=== PATIENT | male | born 1940 | race Caucasian/White ===

== ENCOUNTER 2025-07-30 11:25 | Emergency (ER) | payer OTHER ==
[2025-07-30 13:46] LABS: Absolute Lymphocytes (CBC) 0.6 K/uL (0.7-4.9); Hematocrit 35.5 % (39.6-49.0); Hemoglobin 12.0 g/dL (13.6-17.9); MCH 30.6 pg (27.0-35.0); MCHC 33.9 g/dL (32.0-36.0); MCV 90.3 fL (80-100); MPV 6.4 fL (7.6-11.3); Nucleated RBC Absolute Count 0.0 (0-0); Nucleated Red Blood Cells % 0.0 % (0-0); RBC Red Blood Cell Count 3.93 M/uL (4.33-5.43); White Blood Count 5.60 thou/uL (4.3-10.9)
[2025-07-30 13:55] LABS: PT Prothrombin Time 12.0 SECONDS (10-13.0); Protime INR 1.06
[2025-07-30 14:07] LABS: ALT/SGPT 24 U/L (16-61); Albumin 3.4 g/dL (3.4-5.0); Albumin/Globulin Ratio 0.9 (1.1-1.8); Alkaline Phosphatase 61 U/L (45-117); Anion Gap 11.2 mEq/L (5.0-15.0); BUN Blood Urea Nitrogen 17 mg/dL (7-18); Globulin 3.7 g/dL (2.3-3.5); Glucose Level 101 mg/dL (74-106); Magnesium 1.9 mg/dL (1.6-2.4); NT PRO-BNP 122 pg/mL (<450); Potassium 4.2 mEq/L (3.5-5.1); Troponin High Sensitivity 4.2 pg/mL (<58.9)
[2025-07-30 14:11] LABS: AST/SGOT < 10 U/L (15-37); Bilirubin Indirect, Calculated 0.2 mg/dL (0.2-0.8)
--- NOTE | 2025-07-30 15:28 | EDPHYS ---
Physician Documentation [facility] Name: Marcus Iraheta Jr Age: 85 yrs Sex: Male : 1940 Arrival Date: 07/30/2025 Time: 11:25 Bed 17 Private MD: ED Physician Rosibel Miramontes HPI: 07/30 15:25 This 85 yrs old Male presents to ER via Wheelchair with complaints of Diarrhea, Rectal sp3 Bleeding. 15:25 85-year-old male history of hypertension, hyperlipidemia, prior kidney cancer, now sp3 presents to the ED with chief complaint of diarrhea mixed with bright red blood for the last several weeks. Frequency has increased over the last 2 days. Was sent for outpatient colonoscopy several weeks from now but now presents to the ED for evaluation secondary to increased bowel movements. Denies any headache, fever, chest pain, shortness of breath, abdominal pain, syncope, near syncope, bleeding elsewhere, or any other signs or symptoms on ROS at this time.. Historical: - Allergies: 13:09 No Known Allergies; me1 - PMHx: 13:09 Hypertensive disorder; Hypercholesterolemia; kidney cancer; me1 - PSHx: 13:09 right nephrectomy; me1 - Immunization history:: Adult Immunizations up to date. - Infectious Disease History:: Denies. - Social history:: Smoking status: Patient/guardian denies using tobacco, but has a distant history of tobacco abuse. ROS: 15:25 Constitutional: Negative for fever, chills, and weight loss, Eyes: Negative for injury, sp3 pain, redness, and discharge, Neck: Negative for injury, pain, and swelling, Cardiovascular: Negative for chest pain, palpitations, and edema, Respiratory: Negative for shortness of breath, cough, wheezing, and pleuritic chest pain, Back: Negative for injury and pain, MS/Extremity: Negative for injury and deformity, Skin: Negative for injury, rash, and discoloration, Neuro: Negative for headache, weakness, numbness, tingling, and seizure, Psych: Negative for depression, anxiety, suicide ideation, homicidal ideation, and hallucinations, Allergy/Immunology: Negative for hives, rash, and allergies, Endocrine: Negative for neck swelling, polydipsia, polyuria, polyphagia, and marked weight changes, 15:25 All other systems are negative, Exam: 15:26 Constitutional: This is a well developed, well nourished patient who is awake, alert, sp3 and in no acute distress. Head/Face: Normocephalic, atraumatic. Eyes: Pupils equal round and reactive to light, extra-ocular motions intact. Lids and lashes normal. Conjunctiva and sclera are non-icteric and not injected. Cornea within normal limits. Periorbital areas with no swelling, redness, or edema. Neck: Trachea midline, no thyromegaly or masses palpated, and no cervical lymphadenopathy. Supple, full range of motion without nuchal rigidity, or vertebral point tenderness. No Meningismus. Chest/axilla: Normal chest wall appearance and motion. Nontender with no deformity. No lesions are appreciated. Cardiovascular: Regular rate and rhythm with a normal S1 and S2. No gallops, murmurs, or rubs. Normal PMI, no JVD. No pulse deficits. Respiratory: Lungs have equal breath sounds bilaterally, clear to auscultation and percussion. No rales, rhonchi or wheezes noted. No increased work of breathing, no retractions or nasal flaring. Abdomen/GI: Soft, non-tender, with normal bowel sounds. No distension or tympany. No guarding or rebound. No evidence of tenderness throughout. Back: No spinal tenderness. No costovertebral tenderness. Full range of motion. Skin: Warm, dry with normal turgor. Normal color with no rashes, no lesions, and no evidence of cellulitis. MS/ Extremity: Pulses equal, no cyanosis. Neurovascular intact. Full, normal range of motion. Neuro: Awake and alert, GCS 15, oriented to person, place, time, and situation. Cranial nerves II-XII grossly intact. Motor strength 5/5 in all extremities. Sensory grossly intact. Cerebellar exam normal. Normal gait. Psych: Awake, alert, with orientation to person, place and time. Behavior, mood, and affect are within normal limits. 15:26 Abdomen/GI: 15:36 ECG was reviewed by the Attending Physician. EKG demonstrates normal sinus rhythm at 73 sp3 bpm with normal intervals, normal QR, leftward axis and nonspecific diffuse ST/T changes without evidence of acute ischemia. Vital Signs: 13:07 BP 113 / 79; Pulse 77; Resp 18; Temp 98.6; Pulse Ox 96% ; Weight 111.13 kg; Height 6 me1 ft. 3 in. ; Pain 0/10; 14:45 BP 166 / 90; Pulse 75; Resp 20; Pulse Ox 100% on R/A; kj2 15:35 BP 152 / 90; Pulse 72; Resp 18; Temp 98; Pulse Ox 100% ; kj2 13:07 Body Mass Index 30.62 (111.13 kg, 190.5 cm) me1 13:07 Pain Scale: Adult me1 MDM: 13:14 Medical Screening Exam initiated sp3 15:26 Data reviewed: vital signs, nurses notes, old medical records, lab test result(s). ED sp3 course: 85-year-old male with diarrhea and mixed bloody stools. Consider hemorrhoids versus other lower GI bleeding source. Vital signs are stable. Hemoglobin is 12.0. I have discussed the case with Dr. Corrales their GI doctor who states his office will call them to move up his colonoscopy to next week. Admission not indicated at this time. Patient understands to return if bleeding gets worse. We will safely discharge patient home at this time.. 07/30 13:13 Order name: Basic Metabolic Panel; Complete Time: 15:04 sp3 07/30 13:13 Order name: CBC with Diff; Complete Time: 13:56 sp3 07/30 13:13 Order name: LFT's; Complete Time: 15:04 sp3 07/30 13:13 Order name: Magnesium; Complete Time: 15:04 sp3 07/30 13:13 Order name: NT PRO-BNP; Complete Time: 15:04 sp3 07/30 13:13 Order name: PT-INR; Complete Time: 13:56 sp3 07/30 13:13 Order name: Troponin HS; Complete Time: 15:04 sp3 07/30 13:13 Order name: Type And Screen; Complete Time: 15:44 sp3 07/30 13:13 Order name: Cardiac monitoring; Complete Time: 14:48 sp3 07/30 13:13 Order name: EKG - Nurse/Tech; Complete Time: 13:48 sp3 07/30 13:13 Order name: IV Saline Lock; Complete Time: 13:48 sp3 07/30 13:13 Order name: Labs collected and sent; Complete Time: 13:48 sp3 07/30 13:13 Order name: O2 Sat Monitoring; Complete Time: 14:48 sp3 Administered Medications: No medications were administered Disposition Summary: 07/30/25 15:27 Discharge Ordered Notes: Location: Home sp3 Condition: Stable sp3 Diagnosis - Lower GI bleed sp3 Followup: sp3 - With: Vick Mcnally MD - When: Upon discharge from the Emergency Department - Reason: Recheck today's complaints, Continuance of care Discharge Instructions: - Discharge Summary Sheet sp3 - Lower Gastrointestinal Bleeding sp3 Forms: - Medication Reconciliation Form sp3 - Antibiotic Education sp3 - Prescription Opioid Use sp3 - Patient Portal Instructions sp3 - Leadership Thank You Letter sp3 Signatures: Dispatcher [employer] EDMS Rosibel Miramontes MD MD sp3 Bell Ott RN RN me1 Corrections: (The following items were deleted from the chart) 13:14 13:14 BASIC METABOLIC PANEL+C.LAB.BRZ ordered. EDMS EDMS 13:14 13:14 CBC+H.LAB.BRZ ordered. EDMS EDMS 13:14 13:14 HEPATIC FUNCTION+C.LAB.BRZ ordered. EDMS EDMS 13:14 13:14 MAGNESIUM+C.LAB.BRZ ordered. EDMS EDMS 13:14 13:14 PROBNP+C.LAB.BRZ ordered. EDMS EDMS 13:14 13:14 PROTIME (+INR)+COAG.LAB.BRZ ordered. EDMS EDMS 13:14 13:14 Troponin High Sensitivity+C.LAB.BRZ ordered. EDMS EDMS 13:14 13:14 TYPE AND SCREEN+BB.LAB.BRZ ordered. EDMS EDMS
--- NOTE | 2025-07-30 15:28 | ER ---
Nurse's Notes [facility] Name: Marcus Iraheta Jr Age: 85 yrs Sex: Male : 1940 Arrival Date: 07/30/2025 Time: 11:25 Bed 17 Private MD: Diagnosis: Lower GI bleed Presentation: 07/30 13:07 Chief complaint: Patient states: recent hx of intermittent rectal bleeding that has me1 worsened over the past 2 days. Patient reports heavy bright red rectal bleeding. Denies pain, Denies fever, No n/v. Coronavirus screen: At this time, the client does not indicate any symptoms associated with coronavirus-19. Ebola Screen: No symptoms or risks identified at this time. Initial Sepsis Screen: Does the patient meet any 2 criteria? No. Patient's initial sepsis screen is negative. Does the patient have a suspected source of infection? No. Patient's initial sepsis screen is negative. Risk Assessment: Do you want to hurt yourself or someone else? Patient reports no desire to harm self or others. Onset of symptoms is unknown. 13:07 Method Of Arrival: Wheelchair me1 13:07 Acuity: VANCE 3 me1 Triage Assessment: 14:45 Pain: Denies pain. kj2 Historical: - Allergies: 13:09 No Known Allergies; me1 - PMHx: 13:09 Hypertensive disorder; Hypercholesterolemia; kidney cancer; me1 - PSHx: 13:09 right nephrectomy; me1 - Immunization history:: Adult Immunizations up to date. - Infectious Disease History:: Denies. - Social history:: Smoking status: Patient/guardian denies using tobacco, but has a distant history of tobacco abuse. Screenin:01 [facility] ED Fall Risk Assessment (Adult) History of falling in the last 3 months, kj2 including since admission No falls in past 3 months (0 pts) Confusion or Disorientation No (0 pts) Intoxicated or Sedated No (0 pts) Impaired Gait No (0 pts) Mobility Assist Device Used No (0 pt) Altered Elimination No (0 pt) Score/Fall Risk Level 0 - 2 = Low Risk Maintained a safe environment, Hourly rounding (assess needs \T\ fall precautionary measures) done. Abuse screen: Denies threats or abuse. Denies injuries from another. Nutritional screening: No deficits noted. Tuberculosis screening: No symptoms or risk factors identified. Assessment: 14:45 General: Appears in no apparent distress. Behavior is cooperative. Neuro: Level of kj2 Consciousness is awake, alert, obeys commands, Oriented to person, place, time, situation. Cardiovascular: Patient's skin is warm and dry. Respiratory: Airway is patent Respiratory effort is even, unlabored. GI: Reports diarrhea. : No signs and/or symptoms were reported regarding the genitourinary system. 15:35 Reassessment: Patient appears in no apparent distress at this time. kj2 Vital Signs: 13:07 BP 113 / 79; Pulse 77; Resp 18; Temp 98.6; Pulse Ox 96% ; Weight 111.13 kg; Height 6 me1 ft. 3 in. ; Pain 0/10; 14:45 BP 166 / 90; Pulse 75; Resp 20; Pulse Ox 100% on R/A; kj2 15:35 BP 152 / 90; Pulse 72; Resp 18; Temp 98; Pulse Ox 100% ; kj2 13:07 Body Mass Index 30.62 (111.13 kg, 190.5 cm) me1 13:07 Pain Scale: Adult nd1 ED Course: 11:32 Patient arrived in ED. al6 11:52 Rosibel Miramontes MD is Attending Physician. sp3 13:09 Triage completed. me1 13:09 Arm band placed on Patient placed in waiting room. EKG completed in triage. Results me1 shown to MD. 13:30 Missed attempt(s): 22 gauge in left forearm. Bleeding controlled, band aid applied, bc6 catheter tip intact. 13:48 Type And Screen Sent. bc6 13:48 Basic Metabolic Panel Sent. bc6 13:48 CBC with Diff Sent. bc6 13:48 LFT's Sent. bc6 13:48 Magnesium Sent. bc6 13:48 NT PRO-BNP Sent. bc6 13:48 PT-INR Sent. bc6 13:48 Troponin HS Sent. bc6 13:48 Initial lab(s) drawn, by nd, sent to lab. T\T\S collected, blood band applied to patient. bc6 Inserted saline lock: 22 gauge in right antecubital area, using aseptic technique. Blood collected. Flushed with 10 mL NS. 14:35 Joaquina Miguel RN is Primary Nurse. kj2 15:01 Patient has correct armband on for positive identification. Bed in low position. Call kj2 light in reach. Provided Education on: call light. 15:27 Vick Mcnally MD is Referral Physician. sp3 15:35 No provider procedures requiring assistance completed. IV discontinued, intact, kj2 bleeding controlled, No redness/swelling at site. Pressure dressing applied. Administered Medications: No medications were administered Medication: 15:36 VIS not applicable for this client. kj2 Outcome: 15:27 Discharge ordered by . sp3 15:35 Discharged to home ambulatory, kj2 15:35 Condition: stable 15:35 Discharge instructions given to patient, Instructed on discharge instructions, follow up and referral plans. Demonstrated understanding of instructions, follow-up care, 15:48 Patient left the ED. kj2 Signatures: Rosibel Miramontes MD MD sp3 Sonya Hardy 6 Bell Ott, RN RN me1 Joaquina Miguel RN RN kj2 Luz Ba6
[2025-07-30 18:41] VITALS: O2SAT 100
[2025-07-30 18:43] VITALS: BP 152/90; TEMP 98
== END 2025-07-30 15:48 | disposition home or self-care (01) ==
LOC: ER 11:25
DX: K92.2 Gastrointestinal hemorrhage, unspecified (principal)
CPT/HCPCS: 36415; 80048; 80076; 83735; 83880; 84484; 85025; 85610; 86850; 86900; 86901; 93005; 99284